=== PATIENT | male | born 1945 | race Caucasian/White ===

== ENCOUNTER → 2019-07-21 | Outpatient (CLI) | payer MEDICARE, OTHER ==
--- NOTE | 2019-07-21 16:56 | Diagnostic Imaging Report ---
INDICATION: Right leg pain. TECHNIQUE: The right leg venous Doppler study was performed in the routine fashion with color flow Doppler and waveform analysis. FINDINGS: The right common femoral vein, profunda femoris vein, SFV, and popliteal vein are all occluded throughout with acute appearing deep vein thrombosis. IMPRESSION: Occlusive long segment deep vein thrombosis throughout the right lower extremity venous system. Dictated by: Dictated on workstation # [id number]
== END ==
LOC: RAD 15:48
PROVIDERS: ATTEND Pediatrics
DX: I82.491 Acute embolism and thrombosis of other specified deep vein of right lower extremity (principal)

== ENCOUNTER → 2019-07-30 | Outpatient (CLI) | payer MEDICARE, OTHER ==
[~2019-07-30] MED LIST: CATHETER FLUSH 10 ML SYR IV PRN; HOLD METFORMIN - RECEIVED CONTRAST 20 ML VIAL IV SCH; IOHEXOL 350 MG/ML 100 ML (OMNIPAQUE 350) VIAL IV ONE; NS 100 ML (IVPB) BAG IV ONE
[2019-07-30 14:03] LABS: CALCIUM 10.7 MG/DL (8.5-10.1); CREATININE SERUM 1.34 MG/DL (0.60-1.30); POTASSIUM 5.2 MMOL/L (3.6-5.0)
--- NOTE | 2019-07-30 16:32 | Diagnostic Imaging Report ---
INDICATION: Right leg swelling, history of DVT. EXAMINATION: CT of the abdomen and pelvis obtained with IV contrast bolus. TECHNIQUE: Multiple contiguous axial images were obtained through the abdomen and pelvis after administration of intravenous contrast. Auto Exposure Controls were utilized during the CT exam to meet ALARA standards for radiation dose reduction. COMPARISON: There is no prior study for comparison. FINDINGS: The visualized portions of the lung bases are clear. There are no pleural fluid collections. There is no free intraperitoneal air. The liver shows mild fatty infiltration with no focal lesion. The gallbladder appears normal. The spleen, adrenals, and pancreas appear normal. The right kidney shows nonocclusive stones in the lower pole as well as some small parapelvic and cortical cysts. The left kidney shows cortical thinning and atrophy with a cortical cyst in the mid pole. There is hydronephrosis of moderate severity of the left kidney with stones in the left upper ureter, the more distal stone measuring about a centimeter in size and the more proximal stone a little longer but thinner in caliber. There are no stones beyond this point. There is no retroperitoneal mass. There is no ascites or abnormal fluid collection. Visualized bowel loops are not distended or thickened. There are uncomplicated sigmoid diverticula. There is no pelvic mass or free fluid. There are bilateral fat-containing inguinal hernias. There is clot in the right common femoral vein and proximal SFV and profunda with some slight extension into the right external iliac vein. IMPRESSION: No abdominal mass or abnormal fluid collection. There is cortical thinning and partial atrophy of the left kidney with hydronephrosis with two prominent stones in the left upper ureter. There is a nonocclusive stone in the lower pole of the right kidney. There are small cortical cysts in both kidneys. There are uncomplicated sigmoid diverticula. Thrombus is visualized in the right common femoral vein and proximal SFV and profunda with perhaps some extension into the external iliac vein. Dictated by: Dictated on workstation # [id number]
== END ==
LOC: RAD FS 13:09
PROVIDERS: ATTEND Pediatrics
DX: I82.411 Acute embolism and thrombosis of right femoral vein (principal); N13.2 Hydronephrosis with renal and ureteral calculous obstruction; E11.9 Type 2 diabetes mellitus without complications
CPT/HCPCS: 36415; 74177; 80048

== ENCOUNTER → 2019-08-15 | Outpatient (CLI) | payer MEDICARE, OTHER ==
[2019-08-15 10:53] LABS: CALCIUM 10.6 MG/DL (8.5-10.1); CREATININE SERUM 1.6 MG/DL (0.60-1.30); POTASSIUM 4.9 MMOL/L (3.6-5.0)
== END ==
LOC: LAB FS 09:40
PROVIDERS: ATTEND Pediatrics
DX: E83.52 Hypercalcemia (principal)
CPT/HCPCS: 36415; 80048

== ENCOUNTER → 2019-08-19 | Outpatient (CLI) | payer MEDICARE, OTHER | LOC: RAD FS 14:05 | PROVIDERS: ATTEND Pediatrics | DX: E83.52 Hypercalcemia (principal); E11.9 Type 2 diabetes mellitus without complications | CPT/HCPCS: 36415; 83970; 84100; 84155; 84165 ==

== ENCOUNTER → 2019-10-20 | Outpatient (CLI) | payer MEDICARE, OTHER ==
[2019-10-20 09:04] LABS: HEMATOCRIT 45 % (40-54); HEMOGLOBIN 15.2 G/DL (13.3-17.7); MEAN CORPUSCULAR HEMOGLOBIN 31 PG (25-34); MEAN CORPUSCULAR HGB CONC 34 G/DL (32-36); MEAN CORPUSCULAR VOLUME 92 FL (80-99); PLATELET COUNT 187 10^3/uL (130-400); RED CELL DISTRIBUTION WIDTH 14.4 % (10.0-14.5); WHITE BLOOD COUNT 10.7 10^3/uL (4.3-11.0)
[2019-10-20 09:05] LABS: BASOPHILS # (AUTO) 0.1 10^3/uL (0.0-0.1); BASOPHILS % (AUTO) 1 % (0-10); EOSINOPHILS # (AUTO) 0.3 10^3/uL (0.0-0.3); EOSINOPHILS % (AUTO) 2 % (0-10); LYMPHOCYTES % (AUTO) 19 % (12-44); MONOCYTES # (AUTO) 0.7 X 10^3 (0.0-1.0); MONOCYTES % (AUTO) 7 % (0-12); NEUTROPHILS # (AUTO) 7.5 X 10^3 (1.8-7.8); NEUTROPHILS % (AUTO) 71 % (42-75)
[2019-10-20 09:26] LABS: BILIRUBIN,TOTAL 0.3 MG/DL (0.1-1.0); CALCIUM 10.8 MG/DL (8.5-10.1); CREATININE SERUM 1.48 MG/DL (0.60-1.30); POTASSIUM 4.9 MMOL/L (3.6-5.0)
[2019-10-20 09:27] LABS: ALBUMIN 4.2 GM/DL (3.2-4.5); TOTAL PROTEIN 6.4 GM/DL (6.4-8.2)
== END ==
LOC: LAB FS 08:37
PROVIDERS: ATTEND Internal Medicine Hematology & Oncology
DX: Z01.89 Encounter for other specified special examinations (principal)
CPT/HCPCS: 36415; 80053; 83615; 85025

== ENCOUNTER 2020-10-02 11:27 | Emergency (ER) | payer MEDICARE, OTHER ==
[~2020-10-02] VITALS: Ht 172.7 cm; Wt 78.5 kg
[2020-10-02 12:09] LABS: BASOPHILS # (AUTO) 0.1 10^3/uL (0.0-0.1); BASOPHILS % (AUTO) 1 % (0-10); EOSINOPHILS # (AUTO) 0.1 10^3/uL (0.0-0.3); EOSINOPHILS % (AUTO) 1 % (0-10); HEMATOCRIT 55 % (40-54); HEMOGLOBIN 18.4 G/DL (13.3-17.7); LYMPHOCYTES # (AUTO) 1.8 X 10^3 (1.0-4.0); LYMPHOCYTES % (AUTO) 14 % (12-44); MEAN CORPUSCULAR HEMOGLOBIN 31 PG (25-34); MEAN CORPUSCULAR HGB CONC 34 G/DL (32-36); MEAN CORPUSCULAR VOLUME 93 FL (80-99); MEAN PLATELET VOLUME 9.4 FL (7.4-10.4); MONOCYTES # (AUTO) 0.8 X 10^3 (0.0-1.0); MONOCYTES % (AUTO) 6 % (0-12); NEUTROPHILS # (AUTO) 10.4 X 10^3 (1.8-7.8); NEUTROPHILS % (AUTO) 78 % (42-75); PLATELET COUNT 317 10^3/uL (130-400); WHITE BLOOD COUNT 13.3 10^3/uL (4.3-11.0)
--- NOTE | 2020-10-02 12:13 | ED Respiratory ---
General Chief Complaint: Respiratory Problems Stated Complaint: SOB Source: patient Exam Limitations: no limitations History of Present Illness Date Seen by Provider: Oct 02, 2020 Time Seen by Provider: 11:45 Initial Comments 74-year-old male presents with shortness of air that he has had since the end of August this year. Says he has been seen and tested for Covid 3 times, but has never had a chest x-ray. He denies fever or chills, chest pain, upper respir atory symptoms or cough. He states progressive shortness of air, worse with exertion. He does not smoke cigarettes, but does smoke cigars. He denies any history of lung or heart problems. Denies any weight loss or change of appetite. Allergies and Home Medications Allergies Coded Allergies: No Allergy Information Available (Unverified , 07/30/19) Patient Home Medication List Home Medication List Reviewed: Yes Review of Systems Review of Systems Constitutional: No dizziness, No fever, No malaise, No weakness EENTM: no symptoms reported Respiratory: see HPI; No cough; dyspnea on exertion; No hemoptysis, No orthopnea, No phlegm; short of breath; No stridor, No wheezing Cardiovascular: see HPI; No chest pain, No edema, No palpitations, No syncope, No vascular heart diseas Gastrointestinal: No abdominal pain, No constipation, No diarrhea, No loss of appetite, No nausea, No vomiting Musculoskeletal: No back pain, No joint pain Skin: No change in color, No lesions, No lumps, No rash Psychiatric/Neurological: Denies Headache, Denies Numbness Past [id number] Hx Past Med/Social Hx: Reviewed Nursing Past Med/Soc Hx Physical Exam Vital Signs - First Documented 10/02/20 10/02/20 11:30 18:40 Temp 35.9 Pulse 68 Resp 28 B/P (MAP) 118/66 (83) Pulse Ox 93 O2 Delivery Room Air O2 Flow Rate 2.00 Capillary Refill : Height: '" Weight: lbs. oz. kg; BMI Method: General Appearance: WD/WN, no apparent distress HEENT: PERRL/EOMI, normal ENT inspection Neck: non-tender, full range of motion, supple, normal inspection Respiratory: chest non-tender, no respiratory distress, no accessory muscle use, decreased breath sounds (Right lung); No wheezing, No expiration Cardiovascular: regular rate, rhythm, no edema, no gallop, no JVD Gastrointestinal: non tender, soft Extremities: normal range of motion, non-tender, normal inspection, no pedal edema Neurologic/Psychiatric: no motor/sensory deficits, alert, normal mood/affect, oriented x 3 Skin: normal color, warm/dry Focused Exam Lactate Level 10/02/20 11:55: Lactic Acid Level 4.29*H 10/02/20 14:40: Lactic Acid Level 3.80*H Lactic Acid Level Laboratory Tests Test 10/02/20 11:55 10/02/20 14:40 Lactic Acid Level 4.29 MMOL/L (0.50-2.00) *H 3.80 MMOL/L (0.50-2.00) *H Progress/Results/Core Measures Suspected Sepsis SIRS Temperature: Pulse: Respiratory Rate: Laboratory Tests 10/02/20 11:55: White Blood Count 13.3H Blood Pressure / Mean: 10/02/20 11:55: Lactic Acid Level 4.29*H 10/02/20 14:40: Lactic Acid Level 3.80*H Laboratory Tests 10/02/20 11:55: Creatinine 1.51H, Platelet Count 317, Total Bilirubin 0.9 Results/Orders Lab Results Laboratory Tests Test 10/02/20 11:55 10/02/20 14:40 Range/Units White Blood Count 13.3 H 4.3-11.0 10^3/uL Red Blood Count 5.87 H 4.35-5.85 10^6/uL Hemoglobin 18.4 H 13.3-17.7 G/DL Hematocrit 55 H 40-54 % Mean Corpuscular Volume 93 80-99 FL Mean Corpuscular Hemoglobin 31 25-34 PG Mean Corpuscular Hemoglobin Concent 34 32-36 G/DL Red Cell Distribution Width 14.4 10.0-14.5 % Platelet Count 317 130-400 10^3/uL Mean Platelet Volume 9.4 7.4-10.4 FL Immature Granulocyte % (Auto) 1 % Neutrophils (%) (Auto) 78 H 42-75 % Lymphocytes (%) (Auto) 14 12-44 % Monocytes (%) (Auto) 6 0-12 % Eosinophils (%) (Auto) 1 0-10 % Basophils (%) (Auto) 1 0-10 % Neutrophils # (Auto) 10.4 H 1.8-7.8 X 10^3 Lymphocytes # (Auto) 1.8 1.0-4.0 X 10^3 Monocytes # (Auto) 0.8 0.0-1.0 X 10^3 Eosinophils # (Auto) 0.1 0.0-0.3 10^3/uL Basophils # (Auto) 0.1 0.0-0.1 10^3/uL Immature Granulocyte # (Auto) 0.1 0.0-0.1 10^3/uL Sodium Level 139 135-145 MMOL/L Potassium Level 5.0 3.6-5.0 MMOL/L Chloride Level 99 98-107 MMOL/L Carbon Dioxide Level 24 21-32 MMOL/L Anion Gap 16 H 5-14 MMOL/L Blood Urea Nitrogen 35 H 7-18 MG/DL Creatinine 1.51 H 0.60-1.30 MG/DL Estimat Glomerular Filtration Rate 45 BUN/Creatinine Ratio 23 Glucose Level 161 H 70-105 MG/DL Lactic Acid Level 4.29 *H 3.80 *H 0.50-2.00 MMOL/L Calcium Level 12.7 H 8.5-10.1 MG/DL Corrected Calcium 12.4 H 8.5-10.1 MG/DL Total Bilirubin 0.9 0.1-1.0 MG/DL Aspartate Amino Transf (AST/SGOT) 33 5-34 U/L Alanine Aminotransferase (ALT/SGPT) 22 0-55 U/L Alkaline Phosphatase 57 40-136 U/L Total Protein 7.2 6.4-8.2 GM/DL Albumin 4.4 3.2-4.5 GM/DL My Orders Orders - ZANEVENSTKAILA NANCE DO Ed Iv/Invasive Line Start (10/02/20 11:51) Cbc With Automated Diff (10/02/20 11:51) Comprehensive Metabolic Panel (10/02/20 11:51) Lactic Acid Analyzer (10/02/20 11:51) Blood Culture (10/02/20 11:51) Blood Culture (10/02/20 12:04) Ekg Tracing (10/02/20 11:40) Ct Chest Wo (10/02/20 11:51) Ns Iv 1000 Ml (Sodium Chloride 0.9%) (10/02/20 12:45) Vital Signs/I&O 10/02/20 10/02/20 11:30 18:40 Temp 35.9 36.2 Pulse 68 72 Resp 28 25 B/P (MAP) 118/66 (83) 128/72 (83) Pulse Ox 93 93 O2 Delivery Room Air Nasal Cannula O2 Flow Rate 2.00 Capillary Refill : ECG Initial ECG Rhythm: Normal Sinus Initial ECG Impression: Normal Diagnostic Imaging Diagonstic Imaging: Xray Plain Films/CT/US/NM/MRI: chest Comments IMPRESSION: 1. Imaging features are most advanced with advanced age primary lung cancer likely arising within the right middle lobe. 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 Extensive mediastinal lymphadenopathy and contralateral left hilar lymphadenopathy. Enlarged right supraclavicular lymph node. 3. There are multiple hypodense masses throughout the liver most compatible with mastoid disease 4. Large right pleural effusion is likely malignant in nature. Dictated on workstation # [id number] Dict: 10/02/20 1259 Trans: 10/02/20 1321 [facility] [id number] Interpreted by: KINGS MARIN MD Electronically signed by: Departure Impression Primary Impression: Lung cancer Qualified Codes: C34.91 - Malignant neoplasm of unspecified part of right bronchus or lung Additional Impressions: Dyspnea Qualified Codes: R06.00 - Dyspnea, unspecified Hypoxia Disposition: XFER SHT-TRM HOSP ([facility] [place]) Condition: Stable Transfer Transfer Reason: Exceeds level of care Time Spoke to Accepting Phy: 13:47 Transfer Progress Notes Called [facility] and spoke to transfer doctor, Dr Dalal who accepts for admission to [facility] @ 1347 for further evaluation and treatment for presumed R lung CA Departure-Patient Inst. Referrals: FRANCES LAYTON MD (PCP/Family) Primary Care Physician KAILA SAPP DO Oct 02, 2020 12:13
[2020-10-02 12:30] LABS: ALBUMIN 4.4 GM/DL (3.2-4.5); BILIRUBIN,TOTAL 0.9 MG/DL (0.1-1.0); CALCIUM 12.7 MG/DL (8.5-10.1); CREATININE SERUM 1.51 MG/DL (0.60-1.30); TOTAL PROTEIN 7.2 GM/DL (6.4-8.2)
[2020-10-02] MEDS ORDERED: NS IV 1000 ML 1,000 ML IV SCH (12:45)
--- NOTE | 2020-10-02 13:22 | Diagnostic Imaging Report ---
CT CHEST WO TECHNIQUE: Multiple contiguous axial images were obtained through the chest without the use of intravenous contrast. All CT scans use one or more of the following dose optimizing techniques: automated exposure control, MA and/or KvP adjustment based on a patient size and exam type, or iterative reconstruction. INDICATION: Shortness of air. Abnormal chest x-ray. COMPARISON: Chest radiograph of 10/02/2020 FINDINGS: Lungs and airway: There appears to be an infiltrative soft tissue mass within the right hilar region. This directly invades the mediastinum and crosses midline in the subcarinal region. This incompletely encases the right upper lobe bronchi and obstructs the right middle lobe bronchus. Masslike consolidation is present within the right middle lobe bronchus. Focal perilymphatic micronodules are likely due to lymphangitic carcinomatosis within the right upper, middle and lower lobes. No contralateral left-sided pulmonary nodules. Pleura: Large right simple plain pleural effusion is likely malignant in nature. No discrete pleural nodularity. No pneumothorax. Heart and mediastinum: Heterogeneous nodular thyroid. Enlarged right supraclavicular lymph node measures 1.3 cm. No axillary lymphadenopathy. Numerous enlarged right and left-sided mediastinal lymph nodes. The largest conglomeration is a lower right paratracheal lymph node measuring 3.1 cm. There is a left-sided prevascular lymph node measuring 1.0 cm. Left hilar lymph node measures 1.6 cm. Upper abdomen: Multiple hypodensities throughout the liver are most compatible with metastatic disease. Musculoskeletal: Hemangioma within the T2 vertebral body. No lytic or blastic skeletal lesions. IMPRESSION: 1. Imaging features are most compatible with advanced age primary lung cancer likely arising within the right middle lobe. 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 Extensive mediastinal lymphadenopathy and contralateral left hilar lymphadenopathy. Enlarged right supraclavicular lymph node. 3. There are multiple hypodense masses throughout the liver most compatible with mastoid disease 4. Large right pleural effusion is likely malignant in nature. Dictated by: Dictated on workstation # [id number]
[2020-10-02 18:40] VITALS: BP 128/72
== END 2020-10-02 18:45 | disposition short-term general hospital (02) ==
LOC: EDUNIT# 11:27 → ER FS 11:29
DX: C34.91 Malignant neoplasm of unspecified part of right bronchus or lung (principal); R06.00 Dyspnea, unspecified; R09.02 Hypoxemia
CPT/HCPCS: 36415; 71250; 80053; 83605; 85025; 87040

== ENCOUNTER → 2020-10-02 | Outpatient (CLI) | payer MEDICARE, OTHER ==
--- NOTE | 2020-10-02 11:35 | Diagnostic Imaging Report ---
PA and lateral chest at 11:14. Indication: Shortness of breath There are no prior chest examinations available for comparison. The heart size is mildly enlarged. The right mid lung and right lung base are obscured by pneumonia/atelectasis and fluid. The possibility that there is an underlying neoplastic mass in this area should be considered. I would recommend a CT chest be performed for further study. The left lung is generally clear. The mediastinum is not widened. The osseous structures are intact. Impression: 1. The right mid lung and right lung base are obscured by atelectasis/infiltrate and fluid. The possibility that there is a neoplastic process in this region should be considered. Recommendations as above. 2. There is no acute cardiopulmonary abnormality noted otherwise. Dictated by: Dictated on workstation # [id number]
== END ==
LOC: RAD FS 10:59
PROVIDERS: ATTEND Nurse Practitioner Family
DX: I51.7 Cardiomegaly (principal)
CPT/HCPCS: 71046